=== PATIENT | male | born 1985 | race Caucasian/White ===

== ENCOUNTER 2017-02-12 23:42 | Emergency (ER) | payer OTHER ==
[~2017-02-12] VITALS: Ht 180.3 cm; Wt 86.5 kg
[~2017-02-12 23:42] MED LIST: TYLOTC500 PO
[2017-02-12 23:48] VITALS: TEMP 36.9; Ht 180.3 cm; Wt 86.5 kg
[2017-02-12] MEDS ORDERED: HYDROmorphone INJ 1 MG/ML SYR IV STA (23:51)
[2017-02-12] MEDS ORDERED: ONDANSETRON INJ 2 MG/ML 2 ML VIAL IV STA (23:51)
[2017-02-12] MEDS ORDERED: DiphenhydrAMINE HCL 50 MG/ML VIAL IV STA (23:51)
[2017-02-12] MEDS ORDERED: XYLOCAINE 1%/SOD BICARB 20 ML VIAL INFIL ONE (23:53)
[2017-02-12] MEDS ORDERED: ACETAMINOPHEN 500 MG TAB PO STA (23:57)
[2017-02-13] MEDS ORDERED: CYAN100020 PO (00:47)
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
[2017-02-13 01:06] VITALS: BP 152/78; PULSE 82; O2SAT 95
== END 2017-02-13 01:04 | disposition home or self-care (01) ==
LOC: C.EDB 23:43 → C.EDC 02-13 01:04
DX: S01.81XA Laceration without foreign body of other part of head, initial encounter (principal); S09.90XA Unspecified injury of head, initial encounter; W22.8XXA Striking against or struck by other objects, initial encounter

== ENCOUNTER 2017-09-27 01:51 | Emergency (ER) | payer OTHER ==
[~2017-09-27] VITALS: Ht 177.8 cm; Wt 87.4 kg
[~2017-09-27 01:51] MED LIST changes: +CYAN100020 PO; -TYLOTC500 PO
[2017-09-27 01:57] VITALS: BP 141/89; TEMP 36.7; Ht 177.8 cm; Wt 87.4 kg
[2017-09-27] MEDS ORDERED: ONDANSETRON INJ 2 MG/ML 2 ML VIAL IV STA (02:04)
[2017-09-27] MEDS ORDERED: SODIUM CHLORIDE 0.9% 1000ML 2,000 ML IV STA (02:04)
[2017-09-27] MEDS ORDERED: DICYCLOMINE HCL 10 MG/ML 2 ML AMP IM ONE (02:15)
[2017-09-27 02:24] LABS: BASO % 0.1 %; BASO ABS # 0.02 K/uL (0-0.2); HEMATOCRIT 47.7 % (42-52); HEMOGLOBIN 17.2 g/dL (14.0-18.0); IG# 0.05 K/uL (0.00-0.02); LYMPH % 4.1 %; LYMPH ABS # 0.67 K/uL (1.2-3.4); MEAN CELL VOLUME 85.6 fL (80-100); MEAN CORPUSCULAR HEMOGLOBIN 30.9 pg (25-34); MEAN CORPUSCULAR HGB CONC 36.1 g/dl (32-36); MEAN PLATELET VOLUME 9.9 fL (7.4-10.4); MONO % 4.3 %; NEUT % 91.2 %; NEUT ABS # 14.74 K/uL (1.4-6.5); PLATELET COUNT 281 K/uL (130-400); RED CELL DISTRIBUTION WIDTH CV 12.3 % (11.5-14.5); RED CELL DISTRIBUTION WIDTH SD 38.3 fL (36.4-46.3); WHITE BLOOD COUNT 16.18 K/uL (4.8-10.8)
[2017-09-27 02:45] LABS: CREATININE 1.35 mg/dl (0.60-1.40)
[2017-09-27 02:46] LABS: CALCIUM 9.3 mg/dl (8.5-10.1); POTASSIUM 3.8 mmol/L (3.5-5.1)
--- NOTE | 2017-09-27 03:38 | EMERGENCY ROOM VISIT NOTE ---
History First contact with patient: 01:59 Chief Complaint: VOMITING Stated Complaint: VOMITING,DIARRHEA,MUSCLE SPASMS History of Present Illness The patient is a 32 year old male who presents to the Emergency Room with complaints of nausea, vomiting, diarrhea and abdominal cramping for the past day. Spouse is sick with similar complaints. No recent antibiotics. No bad food exposure. No sick contacts. Patient denies chest pain, dyspnea, fever, chills, cough, congestion or urinary symptoms. No blood or black in the emesis or stool. Review of Systems See HPI for pertinent positives & negatives. A total of 10 systems reviewed and were otherwise negative. Past Medical/Surgical History Medical Problems: (1) No Known Active Medical Problems Social History Smoking Status: Never Smoker Alcohol Use: occasionally Marital Status: single Housing Status: lives with family Occupation Status: employed, student Current/Historical Medications No Active Prescriptions or Reported Meds Physical Exam Vital Signs Date Time Temp Pulse Resp B/P (MAP) Pulse Ox O2 Delivery O2 Flow Rate FiO2 09/27/17 01:57 36.7 104 18 141/89 100 Room Air Physical Exam VITALS: Vitals are noted on the nurse's note and reviewed by myself. Vital signs stable. GENERAL: Pleasant patient, in no acute distress, nondiaphoretic, well-developed well-nourished. SKIN: The skin was without rashes, erythema, edema, or bruising. There is no tenting of the skin. Capillary reflex less than 2 seconds. HEAD: Normocephalic atraumatic. EARS: External auditory canals clear, tympanic membranes pearly hurtado without erythema or effusion bilaterally. EYES: Pupils equal round and reactive to light and accommodation. Conjunctivae without injection, sclerae without icterus. Extraocular movements intact. NOSE: Patent, turbinates without inflammation or discharge. MOUTH: Mucous membranes mildly dry. Pharynx without erythema or exudate. Uvula midline. Airway patent. Tongue does not deviate. NECK: Supple without nuchal rigidity. No lymphadenopathy. No thyromegaly. Cervical spine is nontender. No JVD. HEART: Regular rate and rhythm without murmurs gallops or rubs. LUNGS: Clear to auscultation bilaterally without wheezes, rales or rhonchi. No dullness to percussion. No retractions or accessory muscle use. ABDOMEN: Positive bowel sounds x 4. Normal tympanic percussion. Soft, nontender, without masses or organomegaly. Hidalgo sign negative. No guarding or rebound tenderness. MUSCULOSKELETAL: No muscle atrophy, erythema, or edema noted. NEURO: Patient was alert and oriented to person place and time. Normal sensation to light and sharp touch. No focal neurological deficits. Medical Decision & Procedures Laboratory Results 09/27/17 02:10 Red Blood Count 5.57, Mean Corpuscular Volume 85.6, Mean Corpuscular Hemoglobin 30.9, Mean Corpuscular Hemoglobin Concent 36.1, Mean Platelet Volume 9.9, Neutrophils (%) (Auto) 91.2, Lymphocytes (%) (Auto) 4.1, Monocytes (%) (Auto) 4.3, Eosinophils (%) (Auto) 0.0, Basophils (%) (Auto) 0.1, Neutrophils # (Auto) 14.74, Lymphocytes # (Auto) 0.67, Monocytes # (Auto) 0.70, Eosinophils # (Auto) 0.00, Basophils # (Auto) 0.02 09/27/17 02:10 Test 09/27/17 02:04 09/27/17 02:10 White Blood Count 16.18 K/uL (4.8-10.8) Red Blood Count 5.57 M/uL (4.7-6.1) Hemoglobin 17.2 g/dL (14.0-18.0) Hematocrit 47.7 % (42-52) Mean Corpuscular Volume 85.6 fL (80-100) Mean Corpuscular Hemoglobin 30.9 pg (25-34) Mean Corpuscular Hemoglobin Concent 36.1 g/dl (32-36) Platelet Count 281 K/uL (130-400) Mean Platelet Volume 9.9 fL (7.4-10.4) Neutrophils (%) (Auto) 91.2 % Lymphocytes (%) (Auto) 4.1 % Monocytes (%) (Auto) 4.3 % Eosinophils (%) (Auto) 0.0 % Basophils (%) (Auto) 0.1 % Neutrophils # (Auto) 14.74 K/uL (1.4-6.5) Lymphocytes # (Auto) 0.67 K/uL (1.2-3.4) Monocytes # (Auto) 0.70 K/uL (0.11-0.59) Eosinophils # (Auto) 0.00 K/uL (0-0.5) Basophils # (Auto) 0.02 K/uL (0-0.2) RDW Standard Deviation 38.3 fL (36.4-46.3) RDW Coefficient of Variation 12.3 % (11.5-14.5) Immature Granulocyte % (Auto) 0.3 % Immature Granulocyte # (Auto) 0.05 K/uL (0.00-0.02) Anion Gap 9.0 mmol/L (3-11) Est Creatinine Clear Calc Drug Dose 82.6 ml/min Estimated GFR () 81.1 Estimated GFR (Non- 70.0 BUN/Creatinine Ratio 13.2 (10-20) Calcium Level 9.3 mg/dl (8.5-10.1) Medications Administered Medications (Trade) Dose Ordered Sig/Calin Route Start Time Stop Time Status Last Admin Dose Admin Sodium Chloride 2,000 ml @ 999 mls/hr Q2H1M STAT IV 09/27/17 02:04 09/27/17 04:04 09/27/17 02:15 999 MLS/HR Ondansetron HCl (Zofran Inj) 4 mg NOW STAT IV 09/27/17 02:04 09/27/17 02:05 DC 09/27/17 02:15 4 MG Dicyclomine HCl (Bentyl Inj) 20 mg NOW ONCE IM 09/27/17 02:15 09/27/17 02:16 DC 09/27/17 02:15 20 MG ED Course Prior records/ancillary studies reviewed. Triage Nursing notes reviewed. Additional history obtained from the family. The patient's history was concerning for nausea, vomiting, diarrhea, and abdominal pain. Differential diagnosis: Etiologies such as gastroenteritis, food borne illness, infections, appendicitis , diverticulitis, inflammatory bowel disease, obstruction, GI bleed, biliary pathology, as well as others were entertained. Physical examination findings: As above. Abdominal examination revealed no localized tenderness. Vital signs reviewed and revealed stable. ER treatment provided: IV hydration 2 L NSS. Zofran, Bentyl On reassessment the patient felt better. Patient was tolerating p.o. intake. Diagnostics interpretation by me: The labs revealed leukocytosis, most likely margination from vomiting. Hyperglycemia without DKA This appears to be consistent with nausea vomiting, diarrhea. Patient does not have an acute abdomen on exam. Patient felt much better after being medicated as above. Patient was advised to do a clear liquid diet today and progress as tolerated to bland diet tomorrow. They're advised to take medications as directed and to follow-up family care in a few days or here in the ER sooner for abdominal pain, fevers, vomiting, worsening signs or symptoms or as needed. By the evaluation outlined above emergent etiologies such as appendicitis, diverticulitis, obstruction, cardiac sources, mesenteric ischemia, aortic pathology, inflammatory bowel disease, renal colic, PUD, biliary pathology, UTI , as well as others were deemed relatively unlikely. The pt informed about the findings as listed above. All questions were answered and pleased with the treatment. Return instructions were outlined and the patient was discharged in stable condition. Outpatient prescription management: Zofran Referral: The patient was referred to their primary care physician for follow-up in 2 to 3 days for a recheck of the current condition. Medical Decision As above Medication Reconcilliation Current Medication List: was personally reviewed by me Blood Pressure Screening Patient's blood pressure: Normal blood pressure Impression Primary Impression: Nausea, vomiting, and diarrhea Departure Information Dispostion Home / Self-Care Condition GOOD Prescriptions No Active Prescriptions or Reported Meds Referrals Garfield Macario DO (PCP) Patient Instructions [facility] Additional Instructions Bentyl 10 m tablet every 6-8 hours as needed for abdominal cramping. Zofran(odansetron) tablets 4mg: Take one and allow it to dissolve in your mouth every four to six hours as needed for nausea or vomiting. Ibuprofen(Motrin, Advil) may be used for fever or pain. Use 600mg every six hours as needed. Take with food. Avoid using more than 2400mg in a 24 hour period. Do not use 2400mg per day for more than three consecutive days without physician direction. Prolonged inappropriate use can lead to stomach upset or ulcers. (AND/OR) Acetaminophen(Tylenol) may be used for fever or pain. Use 1000mg every six hours as needed. Avoid using more than 3000mg in a 24 hour period. Rest and drink plenty of fluids as tolerated. Slow sips of water or sports drinks are recommended instead of large amounts all at once. Continue current medications. Once your stomach is settled start with a clear liquid diet (jello, soup broth, etc.) and then advance as tolerated. You should avoid full, heavy meals for about 24 hrs from the time your symptoms resolved. Return to the ER for persistent vomiting, fevers, abdominal pain, chest pains, difficulty breathing, black or bloody stools, worsening of your condition, or as needed. Follow up with your primary physician in 2-3 days for a recheck of your current condition.
[2017-09-27] MEDS ORDERED: BENTYL HOME PACK 10 MG VIAL PO ONE (03:45)
[2017-09-27] MEDS ORDERED: ONDANSETRON HOME PACK 4MG OD TAB PO ONE (03:45)
[2017-09-27 04:03] VITALS: PULSE 97; O2SAT 100
== END 2017-09-27 04:07 | disposition home or self-care (01) ==
LOC: C.EDB 01:52 → C.EDA 04:07
DX: R11.2 Nausea with vomiting, unspecified (principal); R19.7 Diarrhea, unspecified

== ENCOUNTER 2018-02-02 14:52 | Emergency (ER) | payer OTHER ==
[~2018-02-02] VITALS: Ht 177.8 cm; Wt 88.5 kg
[2018-02-02 14:57] VITALS: Ht 177.8 cm; Wt 88.5 kg
[2018-02-02] MEDS ORDERED: SODIUM CHLORIDE 0.9% 1000ML 1,000 ML IV STA ×2 (15:07→16:16)
[2018-02-02] MEDS ORDERED: ONDANSETRON INJ 2 MG/ML 2 ML VIAL IV STA (15:07)
--- NOTE | 2018-02-02 15:12 | EMERGENCY ROOM VISIT NOTE ---
History Report prepared by Adelaida: Bonnie Helton Under the Supervision of: Dr. Christiano Davies M.D. First contact with patient: 15:00 Chief Complaint: DEHYDRATION Stated Complaint: N/V/D DEHYDRATION, CANNOT KEEP ANYTHING DOWN History of Present Illness The patient is a 32 year old white male with no significant past medical history who presents to the ED with a cc of persistent diarrhea beginning 2 days ago. Nothing improves or worsens his symptoms. Positive abdominal pain, nausea, vomiting. Negative urinary symptoms, blood in the stool. His was sick with similar symptoms recently. Admits to occasional alcohol use, but no tobacco or drugs. No recent hiking, camping, insect bites, travel, antibiotic use, or stream water. Source of History: patient Onset: 2 days ago Position: abdomen Quality: other (diarrhea) Timing: other (persistent) Associated Symptoms: + nausea, + vomiting, + abdominal pain, No hematochezia , No urinary symptoms Review of Systems See HPI for pertinent positives and negatives. A total of ten systems were reviewed and were otherwise negative. Past Medical & Surgical Medical Problems: (1) No Known Active Medical Problems Family History Diabetes mellitus Heart disease Social History Smoking Status: Never Smoker Alcohol Use: occasionally Marital Status: Housing Status: lives with significant other Current/Historical Medications Scheduled PRN Ondansetron Hcl (Zofran), 4 MG PO Q8H PRN for Nausea Allergies Coded Allergies: Penicillins (Verified Allergy, Unknown, ., 02/02/18) Physical Exam Vital Signs Date Time Temp Pulse Resp B/P (MAP) Pulse Ox O2 Delivery O2 Flow Rate FiO2 02/02/18 17:00 97 20 100 Room Air 02/02/18 16:25 113 22 02/02/18 15:37 98 02/02/18 14:57 36.9 114 18 111/74 98 Room Air Physical Exam GENERAL: Awake, alert, well-appearing, NAD, mask in place. HENT: Normocephalic, atraumatic. EYES: Normal conjunctiva. Sclera non-icteric. PERRL. No anisocoria. NECK: Supple. No nuchal rigidity. FROM. RESPIRATORY: CTAB, no rhonchi, wheezing, crackles CARDIAC: Tachycardic and regular, no MRG ABDOMEN: Soft, epigastric discomfort, no RUQ tenderness, negative obturators, negative psoas, no peritonitis, BS+ MSK: No chest wall TTP, no LE edema, no CVA TTP. NEURO: GCS 15, CN 2-12 intact, moves all 4s on command SKIN: No rash or jaundice noted. Medical Decision & Procedures Laboratory Results 02/02/18 15:28 Red Blood Count 5.27, Mean Corpuscular Volume 83.9, Mean Corpuscular Hemoglobin 30.2, Mean Corpuscular Hemoglobin Concent 36.0, Mean Platelet Volume 9.9, Neutrophils (%) (Auto) 91.2, Lymphocytes (%) (Auto) 4.3, Monocytes (%) (Auto) 4.2, Eosinophils (%) (Auto) 0.0, Basophils (%) (Auto) 0.1, Neutrophils # (Auto) 8.73, Lymphocytes # (Auto) 0.41, Monocytes # (Auto) 0.40, Eosinophils # (Auto) 0.00, Basophils # (Auto) 0.01 02/02/18 15:28 Test 02/02/18 15:28 White Blood Count 9.57 K/uL (4.8-10.8) Red Blood Count 5.27 M/uL (4.7-6.1) Hemoglobin 15.9 g/dL (14.0-18.0) Hematocrit 44.2 % (42-52) Mean Corpuscular Volume 83.9 fL (80-100) Mean Corpuscular Hemoglobin 30.2 pg (25-34) Mean Corpuscular Hemoglobin Concent 36.0 g/dl (32-36) Platelet Count 250 K/uL (130-400) Mean Platelet Volume 9.9 fL (7.4-10.4) Neutrophils (%) (Auto) 91.2 % Lymphocytes (%) (Auto) 4.3 % Monocytes (%) (Auto) 4.2 % Eosinophils (%) (Auto) 0.0 % Basophils (%) (Auto) 0.1 % Neutrophils # (Auto) 8.73 K/uL (1.4-6.5) Lymphocytes # (Auto) 0.41 K/uL (1.2-3.4) Monocytes # (Auto) 0.40 K/uL (0.11-0.59) Eosinophils # (Auto) 0.00 K/uL (0-0.5) Basophils # (Auto) 0.01 K/uL (0-0.2) RDW Standard Deviation 37.6 fL (36.4-46.3) RDW Coefficient of Variation 12.4 % (11.5-14.5) Immature Granulocyte % (Auto) 0.2 % Immature Granulocyte # (Auto) 0.02 K/uL (0.00-0.02) Anion Gap 7.0 mmol/L (3-11) Est Creatinine Clear Calc Drug Dose 108.0 ml/min Estimated GFR () 101.6 Estimated GFR (Non- 87.7 BUN/Creatinine Ratio 10.1 (10-20) Calcium Level 8.2 mg/dl (8.5-10.1) Magnesium Level 1.9 mg/dl (1.8-2.4) Total Bilirubin 0.6 mg/dl (0.2-1) Direct Bilirubin 0.1 mg/dl (0-0.2) Aspartate Amino Transf (AST/SGOT) 13 U/L (15-37) Alanine Aminotransferase (ALT/SGPT) 29 U/L (12-78) Alkaline Phosphatase 72 U/L (45-117) Total Protein 8.0 gm/dl (6.4-8.2) Albumin 4.4 gm/dl (3.4-5.0) Lipase 64 U/L (73-393) Laboratory results reviewed by me Medications Administered Medications (Trade) Dose Ordered Sig/Calin Route Start Time Stop Time Status Last Admin Dose Admin Sodium Chloride 1,000 ml @ 999 mls/hr Q1H1M STAT IV 02/02/18 15:07 02/02/18 16:07 DC 02/02/18 15:29 999 MLS/HR Ondansetron HCl (Zofran Inj) 4 mg NOW STAT IV 02/02/18 15:07 02/02/18 15:09 DC 02/02/18 15:28 4 MG Dicyclomine HCl (Bentyl Inj) 20 mg NOW ONCE IM 02/02/18 15:15 02/02/18 15:16 DC 02/02/18 15:28 20 MG Metoclopramide HCl (Reglan Inj) 10 mg NOW STAT IV. 02/02/18 16:16 02/02/18 16:17 DC 02/02/18 16:23 10 MG Famotidine (Pepcid Tab) 20 mg NOW ONCE PO 02/02/18 16:30 02/02/18 16:31 DC 02/02/18 16:23 20 MG Sodium Chloride 1,000 ml @ 999 mls/hr Q1H1M STAT IV 02/02/18 16:16 02/02/18 17:16 02/02/18 16:23 999 MLS/HR Lidocaine HCl (Viscous Lidocaine 2% Soln) 20 ml STK-MED ONCE .ROUTE 02/02/18 16:19 02/02/18 16:20 DC 02/02/18 16:24 20 ML Al Hydroxide/Mg Hydroxide (Maalox Susp) 30 ml STK-MED ONCE .ROUTE 02/02/18 16:19 02/02/18 16:20 DC 02/02/18 16:23 30 ML Calcium Carbonate (Tums Chew Tab) 1,500 mg ONE STAT PO 02/02/18 16:24 02/02/18 16:25 DC 02/02/18 16:37 1,500 MG ED Course 1502: The patient was evaluated in room C3. A complete history and physical exam was performed. 1626: I reevaluated the patient. He is feeling a little better. 1710: I reevaluated the patient. Discussed results and discharge instructions: He verbalized understanding and agreement. The patient is ready for discharge. Medical Decision Nursing notes reviewed. Ancillary studies and prior records reviewed. The patient is a 32 year old white male with no significant past medical history who presents to the ED with a cc of persistent diarrhea beginning 2 days ago. Differential diagnosis: Etiologies such as gastroenteritis, food borne illness, infections, appendicitis , diverticulitis, inflammatory bowel disease, obstruction, GI bleed, biliary pathology, as well as others were entertained. Patient was seen and evaluated the bedside. Patient has complained of some nausea, vomiting, diarrhea. Patient does note that his had some similar symptoms but not as prolonged. The patient has had some imbalance count. Patient denies any prior history of IBD or IBS. No blood in stool. Patient has had decreased urine output. Patient denies any trauma area on exam the patient does have epigastric discomfort but no other abdominal discomfort. Patient has no CVA TTP. Patient does have some tachycardia as noted. Patient did have blood work completed. Patient also did have IV fluids, and medications given for symptom control. Patient's blood work fairly unremarkable. White blood cell count within normal limits no anemia. Patient's LFTs and lipase along with kidney function within normal limits. The patient did have mild hypocalcemia which is repleted. Upon reassessment he is feeling mildly improved but still a little tachycardic. Patient was given additional IV fluids as well as medications for symptom control. Patient was feeling improved. Patient was informed of all findings. Patient does likely have an element of viral gastroenteritis. Patient was given strict follow-up, discharge, and return precautions. All questions were answered. Patient was deemed suitable for outpatient follow-up at this time. Patient agreed with the plan of care and was safely discharged home. Medication Reconcilliation Current Medication List: was personally reviewed by me Blood Pressure Screening Patient's blood pressure: Normal blood pressure Blood pressure disposition: Did not require urgent referral Impression Primary Impression: Gastroenteritis Additional Impression: Nausea & vomiting Scribe Attestation The scribe's documentation has been prepared under my direction and personally reviewed by me in its entirety. I confirm that the note above accurately reflects all work, treatment, procedures, and medical decision making performed by me. Departure Information Dispostion Home / Self-Care Prescriptions Ondansetron Hcl (ZOFRAN) 4 Mg Tab 4 MG PO Q8H Y for Nausea, #12 TAB Prov: Christiano Davies M.D. 02/02/18 Referrals Garfield Macario DO (PCP) Patient Instructions Diarrhea, My [facility], Nausea Vomit Control Additional Instructions Please return to the emergency department if you have worsening or recurrent symptoms not amenable to at-home treatment. Please call for a follow-up appointment with her primary care physician. Please take your medications as prescribed. If you have other concerns and/or complaints please feel free to also call your primary care physician's office or return the ED for further evaluation, management, and treatment.\ You may take 800 mg Ibuprofen every 6 hours as needed for pain/fever with food unless told by your physician not to take NSAIDs. You may take tylenol 1000 mg every 6 hours as needed for pain/fever unless told by your physician to not take it or have liver problems. You may take motrin and tylenol separately or at the same time. Take your medications as prescribed. Please consider a soft diet. Hydrate liberally with clear liquids. You have been examined and treated today on an emergency basis only. This is not a substitute for, or an effort to provide, complete comprehensive medical care. It is impossible to recognize and treat all injuries or illnesses in a single emergency department visit. It is therefore important that you follow up closely with [facility], your PCP, and/or your specialist(s). Call as soon as possible for an appointment. Thank you for your time and consideration. I look forward to speaking with you again soon. Please don't hesitate to call us if you have any questions. Problem Qualifiers Additional Impression: Nausea & vomiting Vomiting type: unspecified Vomiting Intractability: unspecified Qualified Codes: R11.2 - Nausea with vomiting, unspecified
[2018-02-02] MEDS ORDERED: DICYCLOMINE HCL 10 MG/ML 2 ML AMP IM ONE (15:15)
[2018-02-02 15:41] LABS: BASO % 0.1 %; BASO ABS # 0.01 K/uL (0-0.2); HEMATOCRIT 44.2 % (42-52); HEMOGLOBIN 15.9 g/dL (14.0-18.0); IG# 0.02 K/uL (0.00-0.02); LYMPH % 4.3 %; LYMPH ABS # 0.41 K/uL (1.2-3.4); MEAN CELL VOLUME 83.9 fL (80-100); MEAN CORPUSCULAR HEMOGLOBIN 30.2 pg (25-34); MEAN PLATELET VOLUME 9.9 fL (7.4-10.4); MONO % 4.2 %; NEUT % 91.2 %; NEUT ABS # 8.73 K/uL (1.4-6.5); PLATELET COUNT 250 K/uL (130-400); RED CELL DISTRIBUTION WIDTH CV 12.4 % (11.5-14.5); RED CELL DISTRIBUTION WIDTH SD 37.6 fL (36.4-46.3); WHITE BLOOD COUNT 9.57 K/uL (4.8-10.8)
[2018-02-02 15:52] LABS: ALBUMIN 4.4 gm/dl (3.4-5.0); CALCIUM 8.2 mg/dl (8.5-10.1); CREATININE 1.12 mg/dl (0.60-1.40); POTASSIUM 3.6 mmol/L (3.5-5.1)
[2018-02-02] MEDS ORDERED: GI COCKTAIL PO STA (16:16)
[2018-02-02] MEDS ORDERED: METOCLOPRAMIDE HCL INJ 5 MG/ML 2 ML VIAL IV. STA (16:16)
[2018-02-02] MEDS ORDERED: ALUMINUM/MAGNESIUM SUSP 30 ML UDC ONE (16:19)
[2018-02-02] MEDS ORDERED: LIDOCAINE HCL 2% VISC SOLN 20 ML UDC ONE (16:19)
[2018-02-02] MEDS ORDERED: CALCIUM CARBONATE 500 MG CHEWABLE PO STA (16:24)
[2018-02-02] MEDS ORDERED: FAMOTIDINE 20 MG TAB PO ONE (16:30)
[2018-02-02] MEDS ORDERED: ONDA4TAB46 PO (17:05)
[2018-02-02 17:15] VITALS: BP 111/74; PULSE 97; TEMP 36.9; O2SAT 100
== END 2018-02-02 17:15 | disposition home or self-care (01) ==
LOC: C.EDB 14:53 → C.EDC 17:15
DX: K52.9 Noninfective gastroenteritis and colitis, unspecified (principal); E83.51 Hypocalcemia; Z88.0 Allergy status to penicillin